=== PATIENT | male | born 1955 | race African-American/Black ===

== ENCOUNTER 2017-09-27 13:42 | Emergency (ER) | payer OTHER ==
[~2017-09-27] VITALS: Ht 182.9 cm; Wt 129.7 kg
[2017-09-27] MEDS ORDERED: COUMADIN 5 MG TA5 M1 PO (16:09)
[2017-09-27] MEDS ORDERED: LISINOPRIL20 MG PO (16:10)
[2017-09-27] MEDS ORDERED: SPIRONOLACTONE100 M1 PO (16:10)
[2017-09-27] MEDS ORDERED: LOPRESSOR100 M1 PO (16:10)
== END 2017-09-27 16:11 | disposition home or self-care (01) ==
LOC: ER 13:42
DX: I78.8 Other diseases of capillaries (principal)